=== PATIENT | male | born 1980 | race Two or more races ===

== ENCOUNTER 2022-09-22 10:15 | Emergency (ER) | payer SELFPAY ==
[~2022-09-22] VITALS: Ht 190.5 cm; Wt 110.0 kg
[2022-09-22 15:30] VITALS: BP 157/108
[2022-09-22] MEDS ORDERED: diphenhdrAMINE HCL 50 MG/1 ML VL IM ONE (15:30)
[2022-09-22] MEDS ORDERED: DexAMETHasone SOD PHOS 10MG/1ML VIAL INJ IM ONE (15:30)
[2022-09-22] MEDS ORDERED: PRED20TA2 PO ×2 (15:32→15:34)
[2022-09-22] MEDS ORDERED: DIPH25CA66 PO ×2 (15:32→15:34)
[2022-09-22] MEDS ORDERED: EPIN0.1I11 IJ (15:35)
== END 2022-09-22 15:44 | disposition home or self-care (01) ==
LOC: ER 10:15
DX: T78.40XA Allergy, unspecified, initial encounter (principal); Z79.899 Other long term (current) drug therapy; Y92.89 Other specified places as the place of occurrence of the external cause
CPT/HCPCS: 96372; 99284; J1100; J1200